=== PATIENT | male | born 1955 | race Caucasian/White ===

== ENCOUNTER 2017-05-20 19:05 | Emergency (ER) | payer MEDICARE, MEDICAID ==
[~2017-05-20] VITALS: Ht 149.9 cm; Wt 83.9 kg
[2017-05-20] MEDS ORDERED: CLARITIN10 MG (19:27)
[2017-05-20] MEDS ORDERED: CENTRUM SILVER1 EAC2 (19:28)
[2017-05-20] MEDS ORDERED: ARICEPT 5 MG TAB5 MG (19:28)
[2017-05-20] MEDS ORDERED: HYDROXYZINE HCL25 M1 (19:28)
[2017-05-20] MEDS ORDERED: QUETIAPINE FUMA25 MG (19:29)
[2017-05-20] MEDS ORDERED: SYNTHROID100 MCG (19:29)
[2017-05-20] MEDS ORDERED: ASPIRIN81 M2 (19:29)
[2017-05-20] MEDS ORDERED: VITAMINC500 (19:30)
[2017-05-20] MEDS ORDERED: REMERON15 MG (19:31)
[2017-05-20] MEDS ORDERED: VITAMIN D3400 UNIT (19:31)
[2017-05-20] MEDS ORDERED: VITAMIN B-12500 MCG (19:32)
[2017-05-20 23:31] VITALS: BP 92/54
== END 2017-05-20 23:32 | disposition home or self-care (01) ==
LOC: M.ERS 19:05
DX: S82.832A Other fracture of upper and lower end of left fibula, initial encounter for closed fracture (principal); G30.9 Alzheimer's disease, unspecified; F02.80 Dementia in other diseases classified elsewhere, unspecified severity, without behavioral disturbance, psychotic disturbance, mood disturbance, and anxiety; Q90.9 Down syndrome, unspecified; M97.12XA Periprosthetic fracture around internal prosthetic left knee joint, initial encounter; W19.XXXA Unspecified fall, initial encounter; Y93.89 Activity, other specified; Y92.89 Other specified places as the place of occurrence of the external cause; Y99.8 Other external cause status

== ENCOUNTER 2018-04-25 09:16 | Emergency (ER) | payer MEDICARE, MEDICAID ==
[~2018-04-25] VITALS: Ht 149.9 cm; Wt 83.9 kg
[~2018-04-25 09:16] MED LIST: ARICEPT 5 MG TAB5 MG PO; ASPIRIN81 M2; CENTRUM SILVER1 EAC2; CLARITIN10 MG; HYDROXYZINE HCL25 M1 PO; QUETIAPINE FUMA25 MG; REMERON15 MG; SYNTHROID100 MCG; VITAMIN B-12500 MCG; VITAMIN D3400 UNIT; VITAMINC500
[2018-04-25 09:44] VITALS: BP 146/73
== END 2018-04-25 09:46 | disposition home or self-care (01) ==
LOC: M.ERS 09:16
DX: Z71.1 Person with feared health complaint in whom no diagnosis is made (principal); G30.9 Alzheimer's disease, unspecified

== ENCOUNTER 2018-05-15 23:18 | Emergency (ER) | payer MEDICARE, MEDICAID ==
[~2018-05-15] VITALS: Ht 152.4 cm; Wt 75.5 kg
[2018-05-16 00:29] VITALS: BP 91/37
== END 2018-05-16 00:51 | disposition home or self-care (01) ==
LOC: M.ERS 23:18
DX: Z46.6 Encounter for fitting and adjustment of urinary device (principal); G30.8 Other Alzheimer's disease; F02.80 Dementia in other diseases classified elsewhere, unspecified severity, without behavioral disturbance, psychotic disturbance, mood disturbance, and anxiety

== ENCOUNTER 2018-05-29 23:59 | Emergency (ER) | payer MEDICARE, MEDICAID ==
[~2018-05-29] VITALS: Ht 165.1 cm; Wt 74.8 kg
[2018-05-30 00:53] VITALS: BP 000/00
== END 2018-05-30 00:57 | disposition home or self-care (01) ==
LOC: M.ERS 23:59
DX: T83.018A Breakdown (mechanical) of other urinary catheter, initial encounter (principal); G30.9 Alzheimer's disease, unspecified; F02.80 Dementia in other diseases classified elsewhere, unspecified severity, without behavioral disturbance, psychotic disturbance, mood disturbance, and anxiety; Q90.9 Down syndrome, unspecified; Y84.8 Other medical procedures as the cause of abnormal reaction of the patient, or of later complication, without mention of misadventure at the time of the procedure; Y92.89 Other specified places as the place of occurrence of the external cause

== ENCOUNTER 2018-05-31 08:54 | Emergency (ER) | payer MEDICARE, MEDICAID ==
[~2018-05-31] VITALS: Ht 165.1 cm; Wt 74.8 kg
[2018-05-31 11:42] VITALS: BP 130/70
== END 2018-05-31 11:40 | disposition home or self-care (01) ==
LOC: M.ERS 08:54
DX: T83.028A Displacement of other urinary catheter, initial encounter (principal); Y84.6 Urinary catheterization as the cause of abnormal reaction of the patient, or of later complication, without mention of misadventure at the time of the procedure; Y73.8 Miscellaneous gastroenterology and urology devices associated with adverse incidents, not elsewhere classified; G30.9 Alzheimer's disease, unspecified; F02.80 Dementia in other diseases classified elsewhere, unspecified severity, without behavioral disturbance, psychotic disturbance, mood disturbance, and anxiety; N40.0 Benign prostatic hyperplasia without lower urinary tract symptoms

== ENCOUNTER 2019-01-01 09:47 | Emergency (ER) | payer MEDICARE, MEDICAID ==
[~2019-01-01] VITALS: Ht 144.8 cm; Wt 79.4 kg
[2019-01-01] MEDS ORDERED: PEPCID40 MG PO (10:20)
[2019-01-01] MEDS ORDERED: XANAX 0.25 MG0.25 MG PO (10:20)
[2019-01-01] MEDS ORDERED: MIRALAX17 GM PO (10:21)
[2019-01-01] MEDS ORDERED: KEFLEX500 M1 PO (11:32)
[2019-01-01 11:46] VITALS: BP 120/84
== END 2019-01-01 11:47 | disposition home or self-care (01) ==
LOC: M.ERS 09:47
DX: S97.112A Crushing injury of left great toe, initial encounter (principal); S91.102A Unspecified open wound of left great toe without damage to nail, initial encounter; G30.9 Alzheimer's disease, unspecified; F02.80 Dementia in other diseases classified elsewhere, unspecified severity, without behavioral disturbance, psychotic disturbance, mood disturbance, and anxiety; W23.1XXA Caught, crushed, jammed, or pinched between stationary objects, initial encounter; Y92.89 Other specified places as the place of occurrence of the external cause; Y93.89 Activity, other specified; Y99.8 Other external cause status

== ENCOUNTER 2019-01-03 15:11 | Emergency (ER) | payer MEDICARE, MEDICAID ==
[~2019-01-03] VITALS: Ht 144.8 cm; Wt 79.4 kg
[~2019-01-03 15:11] MED LIST changes: +KEFLEX500 M1 PO; +MIRALAX17 GM PO; +PEPCID40 MG PO; +XANAX 0.25 MG0.25 MG PO
[2019-01-03 16:23] LABS: ABSOLUTE BASOPHILS 0.1 thou/uL (0.0-0.2); ABSOLUTE LYMPHOCYTES 1.7 thou/uL (0.8-5.3); ABSOLUTE MONOCYTES 0.6 thou/uL (0.0-1.2); ABSOLUTE NEUTROPHILS 3.3 thou/uL (1.6-8.1); BASOPHILS 1.4 %; EOSINOPHILS 0.9 %; HEMATOCRIT 52.4 % (42.0-52.0); HEMOGLOBIN 18.1 gm/dL (14.0-18.0); MCH 36.5 pg (26.0-34.0); MCHC 34.5 g/dL (28.0-37.0); MCV 105.6 fL (80.0-100.0); MONOCYTES 10.8 %; MPV 9.5 fl. (7.2-11.1); NUCLEATED RBCS 0 /100WBC; PLATELET COUNT* 256 thou/uL (150-400); POLYS 56.9 %; RBC 4.96 mil/uL (4.50-6.00); RDW-CV 14.3 % (10.5-14.5); WBC 5.8 thou/uL (4.0-11.0)
[2019-01-03 16:33] LABS: URINE BILIRUBIN NEGATIVE (Negative); URINE BLOOD 2+ (Negative); URINE CLARITY CLEAR; URINE COLOR YELLOW; URINE GLUCOSE-RANDOM NEGATIVE (Negative); URINE KETONES NEGATIVE (Negative); URINE LEUKOCYTES-REFLEX NEGATIVE (Negative); URINE NITRITE-REFLEX NEGATIVE (Negative); URINE PROTEIN NEGATIVE (Negative); URINE SPECIFIC GRAVITY 1.025 (1.005-1.030); URINE UROBILINOGEN 0.2 E.U./dl (0.2-1.0)
[2019-01-03 16:54] LABS: BACTERIA-REFLEX 1-9 Few /HPF (None Seen); SQUAMOUS 0-3 Few /LPF (0-3); URINE RBC 3-10 Few /HPF (0-2); URINE WBC-REFLEX 0-5 Rare /HPF (0-5)
[2019-01-03 16:55] LABS: CRYSTALS None Seen /LPF (None Seen); HYALINE CASTS 0-3 Few /LPF (None Seen); MUCUS 4-6 Moderate strn/LPF (None Seen)
[2019-01-03 17:25] LABS: CALCIUM 8.7 mg/dL (8.5-10.1); CREATININE 1.2 mg/dL (0.6-1.3); POTASSIUM 3.9 mmol/L (3.5-5.1)
[2019-01-03 17:37] LABS: ALBUMIN 3.3 g/dL (3.4-5.0); TOTAL BILIRUBIN 0.4 mg/dL (<0.1-1.0); TOTAL PROTEIN 6.7 g/dL (6.4-8.2)
[2019-01-03] MEDS ORDERED: BACTRIM DS TAB1 EACH PO (17:56)
[2019-01-03 18:43] VITALS: BP 124/50
== END 2019-01-03 18:48 | disposition home or self-care (01) ==
LOC: M.ERS 15:11
PROVIDERS: Nurse Practitioner Family
DX: N39.0 Urinary tract infection, site not specified (principal); G30.9 Alzheimer's disease, unspecified; Q90.9 Down syndrome, unspecified; F02.80 Dementia in other diseases classified elsewhere, unspecified severity, without behavioral disturbance, psychotic disturbance, mood disturbance, and anxiety

== ENCOUNTER 2019-01-30 13:37 | Emergency (ER) | payer MEDICARE, MEDICAID ==
[~2019-01-30] VITALS: Ht 154.9 cm; Wt 78.0 kg
[~2019-01-30 13:37] MED LIST changes: +BACTRIM DS TAB1 EACH PO
[2019-01-30] MEDS ORDERED: CLONAZEPAM2 MG PO (13:55)
[2019-01-30 14:50] LABS: URINE BILIRUBIN NEGATIVE (Negative); URINE BLOOD NEGATIVE (Negative); URINE CLARITY CLEAR; URINE COLOR YELLOW; URINE GLUCOSE-RANDOM NEGATIVE (Negative); URINE KETONES NEGATIVE (Negative); URINE LEUKOCYTES-REFLEX NEGATIVE (Negative); URINE NITRITE-REFLEX NEGATIVE (Negative); URINE PROTEIN NEGATIVE (Negative); URINE SPECIFIC GRAVITY >= 1.030 (1.005-1.030); URINE UROBILINOGEN 0.2 E.U./dl (0.2-1.0)
[2019-01-30 15:15] VITALS: BP 111/69
== END 2019-01-30 15:16 | disposition home or self-care (01) ==
LOC: M.ERS 13:37
PROVIDERS: Nurse Practitioner Family
DX: R30.0 Dysuria (principal); G30.9 Alzheimer's disease, unspecified; F02.80 Dementia in other diseases classified elsewhere, unspecified severity, without behavioral disturbance, psychotic disturbance, mood disturbance, and anxiety